=== PATIENT | male | born 1970 | race Caucasian/White ===

== ENCOUNTER 2024-10-29 17:53 | Emergency (ER) | payer BC ==
[~2024-10-29] VITALS: Ht 185.4 cm; Wt 84.0 kg
[2024-10-29 17:55] VITALS: TEMP 36.4; O2SAT 97
[2024-10-29 18:22] VITALS: BP 138/76; PULSE 58; RESP 12; O2SAT 99
[2024-10-29 18:50] LABS: BASOPHILS % 0.5 % (0.0-2.0); EOSINOPHILS % 0.9 % (0.0-5.0); HEMATOCRIT. 41.0 % (42.0-52.0); HEMOGLOBIN. 13.7 g/dL (14.0-18.0); LYMPHOCYTES % 9.9 % (20.0-50.0); MEAN PLATELET VOLUME 10.1 fl (7.4-10.4); MONOCYTES % 7.0 % (2.0-8.0); NEUTROPHILS % 81.7 % (40.0-76.0); PLATELET 229 x1000/uL (130-400); RED BLOOD CELL COUNT 4.50 mill/uL (4.7-6.1); RED CELL DISTRIBUTION WIDTH 13.5 % (11.6-14.6)
[2024-10-29 19:07] LABS: CREATININE 1.0 mg/dL (0.6-1.3); UREA NITROGEN BLOOD 17 mg/dL (9-23)
[2024-10-29 19:09] LABS: ASPARTATE AMINOTRANSFERASE 215 IU/L (<34); BILIRUBIN DIRECT 0.3 mg/dL (<=3.0); BILIRUBIN TOTAL 1.0 mg/dL (0.1-1.0); PROTEIN TOTAL 6.7 g/dL (6.0-8.3); TROPONIN I HIGH SENSITIVITY 14 ng/L (3.0-53)
[2024-10-29] MEDS ORDERED: PANT40SU MT (19:26)
== END 2024-10-29 20:23 | disposition home or self-care (01) ==
LOC: ER 17:53
DX: R07.9 Chest pain, unspecified (principal); Z79.899 Other long term (current) drug therapy; Z95.1 Presence of aortocoronary bypass graft
CPT/HCPCS: 36415; 71045; 80048; 80076; 84484; 85025; 93005; 99285